=== PATIENT | male | born 1985 | race Caucasian/White ===

== ENCOUNTER 2020-08-08 14:09 | Emergency (ER) | payer OTHER ==
[2020-08-08 14:43] VITALS: BMI 24.7
[2020-08-08] MEDS ORDERED: ACETAMINOPHEN 325 MG TABLET (FP) PO ONE (15:09)
[2020-08-08] MEDS ORDERED: LIDOCAINE HCL 1%, 10 MG/ML (50 mL VIAL) INF ONE (15:09)
[2020-08-08] MEDS ORDERED: LIDOCAINE HCL 1%, 10 MG/ML (20ML VIAL) ONE (15:11)
[2020-08-08] MEDS ORDERED: KETOROLAC TROMETHAMINE 60 MG/2 ML VIAL IM ONE (15:27)
[2020-08-08] MEDS ORDERED: KETOROLAC TROMETHAMINE 60 MG/2 ML VIAL ONE (15:30)
[2020-08-08 16:01] VITALS: BP 142/65; PULSE 75; TEMP 98.1
== END 2020-08-08 15:45 | disposition home or self-care (01) ==
LOC: JER 14:09
PROC: 3E0233Z Introduction of Anti-inflammatory into Muscle, Percutaneous Approach (ICD-10-PCS; principal; 2020-08-08)
DX: S43.101A Unspecified dislocation of right acromioclavicular joint, initial encounter (principal)
CPT/HCPCS: 73030-TC-RT-FY; 99284-25

== ENCOUNTER 2024-06-24 21:03 | Inpatient (IN) | payer OTHER ==
[2024-06-24 21:34] VITALS: BMI 24.7
[2024-06-24] MEDS ORDERED: IBUPROFEN 400 MG TABLET (FP) PO PRN (22:36)
[2024-06-24] MEDS ORDERED: MAG HYDROX/AL HYDROX/SIMETH 30 ML UNIT-DOSE CUP PO PRN (22:36)
[2024-06-24] MEDS ORDERED: BENZOCAINE/MENTHOL (CHLORASEPTIC ) LOZENGE MM PRN (22:36)
[2024-06-24] MEDS ORDERED: POLYETHYLENE GLYCOL (HEALTHYLAX) 3350 17 GM PACKET PO PRN (22:36)
[2024-06-24] MEDS ORDERED: MAGNESIUM HYDROX 2400MG/30ML ORAL SUSPENSION 30 ML CUP PO PRN (22:36)
[2024-06-24] MEDS ORDERED: NICOTINE POLACRILEX 2 MG GUM BUC PRN (22:36)
[2024-06-24] MEDS ORDERED: LOPERAMIDE HCL 2 MG CAPSULE PO PRN (22:36)
[2024-06-24] MEDS ORDERED: guaiFENesin 600 MG TABLET.ER (FP) PO PRN (22:36)
[2024-06-24] MEDS ORDERED: BENZONATATE 200 MG CAPSULE PO PRN (22:36)
[2024-06-24] MEDS ORDERED: NALOXONE (NARCAN) HCL 4 MG/0.1 ML SPRAY NS PRN (22:36)
[2024-06-24] MEDS: MELATONIN 5 MG TABLETS PO SCH (23:52)
[2024-06-25] MEDS ORDERED: ACETAMINOPHEN 325 MG TABLET (FP) ONE (00:59)
[2024-06-25] MEDS: ACETAMINOPHEN 325 MG TABLET (FP) PO PRN (01:03)
[2024-06-25] MEDS: IBUPROFEN 600 MG TABLET (FP) PO PRN (07:22)
[2024-06-25] MEDS: PRENATAL VITAMINS W/ FOLIC ACID TABLET (FP) PO SCH (09:32)
[2024-06-25] MEDS: NICOTINE 14 MG/24 HOURS TOPICAL PATCH TD SCH (09:32)
[2024-06-25] MEDS: hydrOXYzine PAMOATE 25 MG CAPSULE (FP) PO PRN ×2 (09:32→19:12)
[2024-06-25] MEDS ORDERED: TUBERCULIN PPD 5 TU/0.1ML VIAL ID ONE ×2 (10:20→10:24)
[2024-06-25] MEDS: TUBERCULIN PPD 5 TU/0.1ML SYRINGE (IN PATIENT USE ONLY) ID ONE (10:22)
[2024-06-25] MEDS: BENZTROPINE MESYLATE 1 MG TABLET PO SCH (12:05)
[2024-06-25] MEDS: risperiDONE 1 MG TABLET PO SCH (12:05)
[2024-06-25 13:25] LABS: HEMOGLOBIN 12.7 g/dL (13.7-17.5); MEAN CELL VOLUME 94.7 fl (79.0-92.2); MEAN PLT VOLUME 11.1 fl (9.4-12.4); PLATELET COUNT 212 x10^3/uL (163-337); RDW 13.5 % (12.1-15.9)
[2024-06-25 13:33] LABS: CHLORIDE 107 mmol/L (98-107); SODIUM 140 mmol/L (136-145)
[2024-06-25 13:38] LABS: ALBUMIN 3.6 g/dl (3.4-5.0); ANION GAP 5 mmol/L (4-13); BLOOD UREA NITROGEN 17.8 mg/dL (7-18); CO2 28 mmol/L (21-32)
[2024-06-25 13:39] LABS: GLUCOSE,RANDOM 90 mg/dL (74-106)
[2024-06-25 13:41] LABS: CREATININE 0.9 mg/dL (0.55-1.3); SGOT/AST 13 U/L (15-37); SGPT/ALT 16 U/L (13-61)
[2024-06-25 13:42] LABS: BILIRUBIN,TOTAL 0.4 mg/dL (0.2-1); TOT PROT 5.8 g/dl (6.4-8.2)
[2024-06-25 13:44] LABS: ALK PHOS 102 U/L (45-117)
[2024-06-25 18:15] LABS: PH,URINE 7.5 (5.0-8.0); URINE APPEARANCE TURBID; URINE BILIRUBIN NEGATIVE (NEGATIVE); URINE COLOR YELLOW; URINE GLUCOSE (UA) NEGATIVE (NEGATIVE); URINE KETONE TRACE (NEGATIVE); URINE LEUK ESTERASE NEGATIVE (NEGATIVE); URINE NITRITE NEGATIVE (NEGATIVE); URINE PROTEIN NEGATIVE (NEGATIVE)
[2024-06-25] MEDS: ALBUTEROL SO4 HFA INHALER IH PRN (20:59)
[2024-06-25] MEDS: THIAMINE 100 MG TABLET PO SCH (21:52)
[2024-06-25] MEDS: traZODone HCL 50 MG TABLET (FP) PO SCH (21:53)
[2024-06-26 06:37] VITALS: TEMP 97.8
[2024-06-26] MEDS: FLU VACCINE (FLULAVAL) PF 45 MCG/0.5 ML SYRINGE 2024-2025 IM ONE (12:07)
[2024-06-26 13:46] LABS: HCV DIAGNOSTIC IN-HOUSE W/RFLX NON-REACTIVE (NONREACTIVE)
[2024-06-26 13:47] LABS: HIV INTERPRETATION NEGATIVE (NEGATIVE)
[2024-06-27 07:38] VITALS: BP 161/73; PULSE 72; RESP 17
== END 2024-06-27 11:02 | disposition home or self-care (01) | DRG 895 ==
LOC: YASAS 21:03 → Y3E 06-25 03:42
PROVIDERS: ADMIT Allergy & Immunology; ATTEND Psychiatry & Neurology Pain Medicine
PROC: HZ42ZZZ Group Counseling for Substance Abuse Treatment, Cognitive-Behavioral (ICD-10-PCS; principal; 2024-06-25)
DX: F14.20 Cocaine dependence, uncomplicated (principal); F17.210 Nicotine dependence, cigarettes, uncomplicated; F31.9 Bipolar disorder, unspecified; F20.9 Schizophrenia, unspecified; F41.9 Anxiety disorder, unspecified; I10 Essential (primary) hypertension; J45.909 Unspecified asthma, uncomplicated
CPT/HCPCS: 36415; 80053; 80305; 80307; 81003; 85027; 86780; 86803; 87389; 87811; 90656; 93005; 93010